=== PATIENT | female | born 1990 | race Caucasian/White ===

== ENCOUNTER 2023-04-06 08:13 | Outpatient (CLI) | payer BC, SELFPAY ==
--- NOTE | 2023-04-06 08:15 | CRLHL7_ITS ---
For Patients: As a result of the Cures Act, medical imaging exams and procedure reports are released immediately into your electronic medical record. You may view this report before your referring provider. If you have questions, please contact your health care provider. INDICATION: First trimester scan, establish dates. COMPARISON: None. TECHNIQUE: Real-time james-scale imaging of the pelvis was performed. FINDINGS: Sonographic imaging demonstrates a single living intrauterine gestation. The embryo demonstrates a regular cardiac rate measuring 185 beats per minute. The embryo`s crown-rump length measurement of 2.2 cm corresponds to a gestational age of 8 weeks 6 days with a sonographic due date of 11/10/2023. There is a normal-appearing yolk sac. There are no gross abnormalities noted within the embryo at this early state of development. The gestational sac has a normal appearance. There is a 2.6 x 1.9 x 2.2 cm perigestational hemorrhage. The amount of fluid within the sac appears appropriate for gestational age. The cervix is closed. The myometrium appears normal. The ovaries are of normal size. Corpus luteal cyst left ovary. Trace pelvic free fluid. IMPRESSION: Single living intrauterine with sonographic gestational age 8 weeks 6 days and sonographic due date of 11/10/2023. Right-sided subchorionic hemorrhage measuring 2.6 x 1.9 x 2.2 cm. Dictated by Yung Perkins MD @ 04/06/2023 11:24:57 AM (Electronically Signed)
== END 2023-04-06 08:14 | disposition home or self-care (01) ==
LOC: US 08:14
PROVIDERS: Visit Provider Advanced Practice Midwife
DX: Z34.91 Encounter for supervision of normal pregnancy, unspecified, first trimester (principal); O20.9 Hemorrhage in early pregnancy, unspecified; Z3A.08 8 weeks gestation of pregnancy
CPT/HCPCS: 76817; 86703; 86706; 86803; 86850; 86900; 86901; 87086; 87340

== ENCOUNTER 2023-04-06 09:30 | Outpatient (CLI) | payer BC, SELFPAY | END 2023-04-06 09:31 | disposition home or self-care (01) | PROVIDERS: Visit Provider Advanced Practice Midwife | DX: Z34.91 Encounter for supervision of normal pregnancy, unspecified, first trimester (principal); Z3A.08 8 weeks gestation of pregnancy | CPT/HCPCS: 86592; 86703; 86704; 86706; 86762; 86787; 86803; 86850; 86900; 86901; 87086; 87340 ==

== ENCOUNTER 2023-07-01 13:56 | Outpatient (CLI) | payer BC, SELFPAY ==
--- NOTE | 2023-07-01 14:00 | CRLHL7_ITS ---
For Patients: As a result of the Century Cures Act, medical imaging exams and procedure reports are released immediately into your electronic medical record. You may view this report before your referring provider. If you have questions, please contact your health care provider. INDICATION: Evaluate anatomy. COMPARISON: 04/06/2023 TECHNIQUE: Real time james scale imaging of the fetus was performed as well as color Doppler analysis of the umbilical vessels. FINDINGS: Sonographic imaging demonstrates a single living intrauterine gestation. Fetus demonstrates a regular cardiac rate of 150 beats per minute. Fetus has a vertex position. The placenta lies anteriorly without evidence of placenta previa. Edge of the placenta is located 5.1 cm from the internal cervical os. Amniotic fluid volume appears normal. Single deepest vertical pocket: 6.8 cm. The cervix is closed and measures 4.4 cm in length. The composite ultrasound gestational age is calculated at 21 weeks 5 days with an estimated sonographic due date of 11/06/2023. The estimated weight is 435 grams which lies at the 83rd %. The following biometric measurements were obtained: Biparietal diameter: 5.1 cm/21 weeks 3 days 72nd% Head circumference: 19.0 cm/21 weeks 2 days 59th% Abdominal circumference: 17.8 cm/22 weeks 5 days 92nd% Femur length: 3.3 cm/20 weeks 2 days 25th% The HC/AC ratio measures: 1.07 range (1.06-1.24) On anatomic survey, there is a normal appearance of the cerebral ventricles, cavum septi pellucidi, cisterna magna and cerebellum. The nose, lips, and facial profile appear normal. The cervical, thoracic and lumbar spine are well visualized and appear normal. There is a normal four-chamber heart view and the left and right ventricular outflow tracts appear normal. The diaphragm and stomach appear normal. The kidneys and bladder also appear normal. There is a normal three-vessel cord and cord insertion site. The four extremities appear normal. IMPRESSION: Normal OB ultrasound exam with concordance of clinical and sonographic dating. No intrinsic abnormalities noted on anatomic survey. Dictated by Yung Perkins MD @ 07/02/2023 9:57:16 AM (Electronically Signed)
== END 2023-07-01 13:57 | disposition home or self-care (01) ==
LOC: US 13:58
PROVIDERS: Visit Provider Advanced Practice Midwife
DX: Z34.92 Encounter for supervision of normal pregnancy, unspecified, second trimester (principal); Z3A.21 21 weeks gestation of pregnancy
CPT/HCPCS: 76805

== ENCOUNTER 2023-08-26 10:07 | Outpatient (CLI) | payer BC, SELFPAY | END 2023-08-26 10:08 | disposition home or self-care (01) | LOC: NFLDREF 08-28 12:18 | PROVIDERS: Visit Provider Advanced Practice Midwife | DX: Z34.93 Encounter for supervision of normal pregnancy, unspecified, third trimester (principal) | CPT/HCPCS: 86592 ==

== ENCOUNTER 2023-09-09 08:30 | Outpatient (RCR) | payer BC, SELFPAY | END 2024-01-07 23:59 | disposition home or self-care (01) | PROVIDERS: Visit Provider Advanced Practice Midwife | DX: N81.89 Other female genital prolapse (principal); R29.898 Other symptoms and signs involving the musculoskeletal system; Z51.89 Encounter for other specified aftercare | CPT/HCPCS: 97110; 97162 ==

== ENCOUNTER 2023-09-30 12:33 | Outpatient (CLI) | payer BC, SELFPAY | END 2023-09-30 12:34 | disposition home or self-care (01) | LOC: NFLDREF 10-02 07:28 | PROVIDERS: Visit Provider Advanced Practice Midwife | DX: Z34.93 Encounter for supervision of normal pregnancy, unspecified, third trimester (principal) | CPT/HCPCS: 82728 ==

== ENCOUNTER 2023-10-14 11:14 | Outpatient (CLI) | payer BC, SELFPAY | END 2023-10-14 11:15 | disposition home or self-care (01) | LOC: NFLDREF 10-16 08:56 | PROVIDERS: Visit Provider Advanced Practice Midwife | DX: Z34.83 Encounter for supervision of other normal pregnancy, third trimester (principal) | CPT/HCPCS: 87081; 87653 ==

== ENCOUNTER 2023-10-20 09:05 | Outpatient (RCR) | payer BC, SELFPAY ==
--- NOTE | 2023-10-13 10:59 | URNOTE ---
Per [employer], Interactive Care Reviewer, prior auth is not required for [employer] ([id number]). Tracking #[id number]
[2023-10-20 09:21] VITALS: BP 100/66; PULSE 87; RESP 16; TEMP 35.9; O2SAT 95
[2023-10-20] MEDS: IRON DEXTRAN COMPLEX 25 MG in 0.9 % SODIUM CHLORIDE 100 ml 100 ML 402 MG IVPB (09:56)
[2023-10-20] MEDS: 0.9 % SODIUM CHLORIDE 250 ml IV (11:15)
[2023-10-20] MEDS: IRON DEXTRAN COMPLEX 975 MG in 0.9 % SODIUM CHLORIDE 250 ml 250 ML 269.5 MG IVPB (11:15)
[2023-10-20] MEDS: SODIUM CHLORIDE 0.9 % (FLUSH) 10 ML SYRINGE IVF (11:15)
[2023-10-20 12:25] VITALS: BP 117/69; PULSE 71; RESP 16; TEMP 36.7; O2SAT 96
[2023-10-20 13:01] VITALS: BP 113/72; PULSE 76; RESP 16; TEMP 36.3; O2SAT 96
== END 2024-04-17 23:59 | disposition home or self-care (01) ==
LOC: CCIC 09:05
PROVIDERS: Visit Provider Advanced Practice Midwife
DX: D50.9 Iron deficiency anemia, unspecified (principal)
CPT/HCPCS: 96365; 96376; J1750; J7050

== ENCOUNTER 2023-11-12 14:53 | Outpatient (CLI) | payer BC, SELFPAY ==
--- NOTE | 2023-11-12 15:00 | CRLHL7_ITS ---
For Patients: As a result of the Century Cures Act, medical imaging exams and procedure reports are released immediately into your electronic medical record. You may view this report before your referring provider. If you have questions, please contact your health care provider. INDICATION: Small for dates TECHNIQUE: Limited transabdominal two-dimensional james-scale ultrasound examination. COMPARISON: None FINDINGS: There is a living fetus in cephalic lie with gestational age of 40 weeks by LMP and 38 weeks 6 days by today`s measurements. EDC based on LMP is today, 11/12/2023. BPD: 9.3 cm, 38 weeks Head circumference: 34.7 cm, 40 weeks 1 day Abdominal circumference: 36.0 cm, 40 weeks Femur length: 7.3 cm, 37 weeks 3 days The weight is estimated at 3717 grams, the 58th percentile. The heart rate is measured at 134 beats per minute and the rhythm appears regular. The amniotic fluid volume is within normal limits with single deepest pocket of 8.7 cm. The placenta is anterior and superior to the cervical os. There is no evidence of previa. IMPRESSION: 1. Living fetus in cephalic lie with gestational age of 40 weeks by LMP and 38 weeks 6 days by today`s measurements. EDC based on LMP is today, 11/12/2023. 2. weight estimated at 3717 grams, the 58th percentile. 3. Amniotic fluid volume within normal limits, single deepest pocket measured at 8.7 cm. Dictated by Hossein Coleman MD @ 11/14/2023 9:15:14 AM (Electronically Signed)
== END 2023-11-12 14:54 | disposition home or self-care (01) ==
LOC: US 14:54
PROVIDERS: Visit Provider Advanced Practice Midwife
DX: Z34.93 Encounter for supervision of normal pregnancy, unspecified, third trimester (principal); Z3A.38 38 weeks gestation of pregnancy
CPT/HCPCS: 76816

== ENCOUNTER 2023-11-18 12:56 | Outpatient (CLI) | payer BC, SELFPAY ==
--- NOTE | 2023-11-18 13:00 | CRLHL7_ITS ---
For Patients: As a result of the Century Cures Act, medical imaging exams and procedure reports are released immediately into your electronic medical record. You may view this report before your referring provider. If you have questions, please contact your health care provider. INDICATION: Post dates COMPARISON: 11/12/2023 TECHNIQUE: Real time james scale imaging of the fetus was performed. Without non-stress testing. FINDINGS: Sonographic imaging demonstrates a single living intrauterine gestation. Fetus demonstrates a regular cardiac rate of 150 beats per minute. Fetus has a vertex position. The amniotic fluid volume appears normal and there is a single deepest pocket measurement of 7.3 cm. The fetus was active and demonstrated normal breathing movements. There was normal flexion and extension of the trunk and extremities. IMPRESSION: Normal biophysical profile score of 8 out of 8. Dictated by Yung Perkins MD @ 11/19/2023 11:12:17 AM (Electronically Signed)
== END 2023-11-18 12:57 | disposition home or self-care (01) ==
LOC: US 12:57
PROVIDERS: Visit Provider Advanced Practice Midwife
DX: O48.0 Post-term pregnancy (principal)
CPT/HCPCS: 76819

== ENCOUNTER 2023-11-23 02:45 | Inpatient (IN) | payer BC, SELFPAY ==
[2023-11-23] VITALS (18 sets, daily range): BP systolic 89–122; BP diastolic 47–68; PULSE 65–89; RESP 16–18; TEMP 36.6–37.2; O2SAT 97–98; BMI 34.5
--- NOTE | 2023-11-23 02:16 | P.LDBA_ITS ---
Subjective History of Present Illness Date Seen: 11/23/23 Narrative: Patient is being admitted to Labor and Delivery for labor. She is a 32 year old at 41.4 weeks gestation. Her full history and physical was dictated by Comfort Verdugo CNM on 10/21/23. Please see this for details. Martha has been del since 2129. She denies leaking of fluid and has had small pink discharge with passing her mucus plug. Specific Issues/Plans Truck Supervisor: Mercedes Perkins H&P done by DAWSON Handley on 10/21/2023. 1. Rubella equivocal vaccine PP 2. Hx of recurrent miscarriage x 4 some anxiety at 12 week visit, check mood at next visit 3. Measuring small for dates. Growth at 40 wks 58%. OB - Problem Based A/P Additional Plan (1) Pain during labor: Status: Acute (2) Post-dates : Status: Acute Plan Assessment:?? at 41.4 weeks gestation?? GBS negative? Patient is coping well with challenges of labor.?? Labor type: Spontaneous, Early labor? Category 1 FHR pattern.? complicated by: Measuring small for dates- growth at 40 weeks 58% Hx of recurrent miscarriage X 4 Plan:?? * ?Admit to L & D? * IV access: none at this time * Monitoring per policy: intermittent? * Candidate for analgesia of choice.? Planning unmedicated for pain management * Desires waterbirth.? Consent signed and Hep C negative * Expectant management at this time ? * Patient encouraged to reposition and ambulate to promote physiologic labor and . * Anticipate ? Delivery/Labor/Induction Plan Plan: expectant management OB Exam Physical Exam Vital signs: Temp Pulse Resp BP 98.7 F 74 17 122/60 11/23/23 01:49 11/23/23 01:48 11/23/23 01:49 11/23/23 01:48 Narrative: Vitals Reviewed Constitutional:? Alert and oriented x3 HEENT:? Normocephalic, atraumatic Neck:? Supple Lungs:? Clear to auscultation bilaterally Heart:? Regular rate and rhythm, no murmur, rub or gallop Abdomen:? Soft, nontender, and gravid. Vertex by Ed's, confirmed with cervical exam. Extremities:? No edema or erythema Cervix: 5 cm/80%/+1 station/vertex NST: 135 bpm/moderate variability/+accelerations/-decelerations/ moderate contractions Detailed Labor and Delivery Exam Patient Gravid: Yes
[2023-11-23] MEDS: OXYTOCIN 10 UNIT/ML INJ IM (06:25)
--- NOTE | 2023-11-23 06:52 | W.PM.OBVAGDE ---
OB Procedure Vag Delivery Mother Details Mother Details: The patient is a 32 year-old, 6, Para 1, admitted on 11/23/23 at 41.4 weeks gestation. : 6 Para: 2 Weeks Gestation: 41.4 Admission Date: 11/23/23 Additional Details Amniotic Membrane Status: AROM Amniotic Membrane Rupture Date: 11/23/23 Amniotic Membrane Rupture Time: 05:55 Amniotic Membrane Fluid Description: Meconium Stained Analgesia/Anesthesia Type: None Waterbirth: No Pitcoin: Yes (IM for AMTSL) Intrapartal Events: None Delivery augmentation: rupture of membranes Labor Onset: 21:30 Complete: 06:07 Pushin:08 Heart: heart tones during second stage were intermittently monitored, in 130's no audible decelerations were heard. Delivery Details Delivery Date: 11/23/23 Delivery Time: 06:14 Route of delivery: Gender: Male Viability: Alive; Heart Rate Present Position at Delivery: OA Delivery Details: 32?y.o?at 41.4 weeks.? Martha arrived in active labor at 5cm dilated. She had been laboring at home since approximately 2129. She was planning a waterbirth and was admitted to the waterbirth room. She progressed normally and then entered the tub around 0415. She continued to contract regularly and progressed to the point of having a lot of pelvic pressure. Was unable to have a strong urge to push in the tub and elected to get out to the bed. At that time she desired a cervical exam to check if she was completely dilated. Exam showed she had an anterior rim and intact membranes. Offered to rupture her membranes to see if this would help her progress and she was agreeable. This was done with minimal fluid seen. She then progressed to feeling pushy and was assumed complete with pushing. ? ? She became complete at 0607.??She pushed in left tilt positions effectively.? Spontaneous vaginal delivery at 0614 of?a viable?male .??Delivered in vertex OA position.??Shoulders delivered easily.? Spontaneous cry noted.?? placed on maternal abdomen.??Cord?was clamped and cut after a 5+ minute delay.??Nose and mouth were bulb suctioned.? Shoulder dystocia: no? Nuchal cord: no? Meconium stained?fluid: yes? Water : no? ? ? 8 at 1 minute and 8 at 5 minutes.? Weight is pending. ? Placenta delivered spontaneously and?complete?at 0639 with a?3 vessel?cord.?? Bleeding controlled with fundal massage and?pitocin?for AMTSL.? ? Mother and infant were stable after delivery.? ? Lacerations:? intact ? Bleeding?post delivery?was: moderate. ?The fundus was firm to palpation.? Blood loss: 850?mL.? Blood loss measurement type: QBL? ? ? Sponge,?lap?and needles counts are correct.? Mother and were stable after delivery.? 1 Minute Interval Total Score: 8 5 Minute Interval Total Score: 8 Additional Details Shoulder Dystocia: No Placenta Delivery Time: 06:39 Placental Delivery Description: Spontaneous Procedure Done: Global Blood Loss: 850 Laceration: None Blood Loss Measurement Type: QBL Bakri Used: No Sponge/Need Count Correct: Yes Cord Vessel Description: 3 Vessels Event Summary Status: Mother and were stable after delivery. Disposition: floor
[2023-11-23 07:18] LABS: Basophils Percent Auto 0.1 % (0.0-3.0); Eosinophils Percent Auto 0.1 % (0.0-7.0); Hematocrit 32.9 % (33.0-51.0); Hemoglobin* 10.9 gm/dL (12.0-16.0); Immature Granulocytes Pct Auto 0.7 %; Mean Corpuscular HGB Conc 33 gm/dL (32-36); Mean Corpuscular Hemoglobin 31 pg (26-34); Mean Corpuscular Volume 92 fL (80-100); Monocytes Percent Auto 4.1 % (0.0-11.0); Platelet Count* 163 K/uL (140-440); RDW Coefficient of Variation % 13.3 % (11.5-15.5); Red Blood Count 3.57 m/uL (4.00-5.20); White Blood Count* 14.83 K/uL (4.50-11.00)
[2023-11-23 07:19] LABS: Slide Review Reflex No
[2023-11-23] MEDS: IBUPROFEN 600 MG TABLET PO ×2 (12:24→23:17)
[2023-11-23] MEDS: DOCUSATE SODIUM 100 MG CAPSULE PO (23:17)
[2023-11-24 04:36] VITALS: BP 94/56; PULSE 89; RESP 16
[2023-11-24 07:06] LABS: Hemoglobin* 10.1 gm/dL (12.0-16.0)
--- NOTE | 2023-11-24 08:25 | P.DS_ITS ---
Documented by User: Yamilet Davison CNM 11/24/23 08:56 DS: Providers Provider Date Seen: 11/24/23 Date of admission: 11/23/23 02:45 Primary care physician: Not a Local Provider Admitting Clinician: Blanka Fang CNM Attending Physician on discharge: Yamilet Davison CNM Date of Discharge: 11/24/23 DS: Diagnosis Discharge Diagnosis (1) care and examination immediately after delivery: Status: Acute (2) Lactating mother: Status: Acute Exam Narrative: Exam Narrative: GENERAL APPEARANCE:? normal affect, alert, no distress? MOOD:? appropriate? CHEST:? clear to auscultation and percussion? HEART:? regular rate and rhythm? ABDOMEN:? soft, non-tender the uterine fundus is 1 above umbilicus because she has a full bladder., but is appropriate for the stage of recovery. PERINEUM:? minimal pain and no laceration so not examined EXTREMITIES:? normal and no edema? Const: Vital Signs, click to edit/add: Vital Signs - 24 hr 11/23/23 08:33 11/23/23 12:17 11/23/23 16:34 Temperature Pulse Rate 65 Pulse Rate [Blood Pressure Cuff] 80 83 Respiratory Rate 16 16 Blood Pressure 103/56 L Blood Pressure [Le ft Arm] 108/67 104/65 Pulse Oximetry Oxygen Delivery Me thod Room Air Room Air 11/23/23 19:56 11/23/23 23:11 11/24/23 04:36 Temperature 98.7 F 98.9 F Pulse Rate Pulse Rate [Blood Pressure Cuff] 84 89 89 Respiratory Rate 18 18 16 Blood Pressure Blood Pressure [Le ft Arm] 89/47 L 116/68 94/56 L Pulse Oximetry 97 98 Oxygen Delivery Me thod Room Air Room Air Room Air OB - DS: Summary Hospital Course Hospital Course: The patient is a 32 year old G 6 P 2042 at 41 4/7 weeks gestation that was admitted to the Center on 11/23/23 for active labor. She had an uncomplicated vaginal delivery. She delivered a viable male infant. She is breast feeding. the patient has done well. ?The patient feels well.? Her pain is well controlled with current medications.? She has no new complaints.? Urinary output is adequate and she is voiding without difficulty.? Has a good appetite, is tolerating a general diet, is passing flatus, and has not had a bowel movement.? Has scant amount of rubra lochia.? She is ambulating well.? No active bleeding?? Doing well? She is requesting discharge home Peripartum Data delivery method: Vaginal Laceration description: None complications: none Infant Gender: Male Infant Discharge Plan: Home Status at Discharge Functional status at discharge: independent ambulation Overall status at discharge: patient is progressing back to baseline Time Spent with Patient Time attestation: Total time spent providing and/or coordinating discharge services: Time spent: Less than 30 minutes Discharge Plan Discharge Disposition: Home, Self-Care Date of Admission: 11/23/23 02:45 Attending Provider on Discharge: Yamilet Davison Primary Care Provider: Provider,Not a Local Condition: Stable Anticipated Discharge Date/Time: 11/24/23 00:00 Discharge Medications: New docusate sodium 100 mg Capsule 100 mg PO DAILY Qty: 60 0RF Rx Instructions: Take 1-2 tablets daily as needed for constipation. ibuprofen 600 mg Tablet 600 mg PO Q6H PRNQty: 30 0RF Continued Saccharomyces boulardii [Daily Probiotic (S. boulardii)] 250 mg capsule 250 mg PO BID prenat.vits,wayne,plu-otmx-aadnw Tablet 1 tab PO QDAY cholecalciferol (vitamin D3) 125 mcg (5,000 unit) capsule 125 mcg PO QDAY omega 0-ocx-kkc-fish oil [Fish Oil] 1,200 (144-216) mg capsule 1 cap PO DAILY Discharge Orders: Discharge Order (Routine); Ordered 11/24/23 Ordered By: Johnna Irizarry Consulting provider completed their portion of the discharge: Yes Patient Education: OB Vaginal/Breast Feeding Activity Level: No Restrictions and Activity as Tolerated Discharge Diet: Regular Follow Up Appointments: [facility] [Provider Group] Provider,Not a Local [Primary Care Provider] - Forms: [facility] Info Instructions Documented by User: Johnna Irizarry CNM 11/24/23 13:03 DS: Diagnosis Discharge Diagnosis (1) care and examination immediately after delivery: Status: Acute (2) Lactating mother: Status: Acute Exam Narrative: Exam Narrative: GENERAL APPEARANCE:? normal affect, alert, no distress? MOOD:? appropriate? CHEST:? clear to auscultation and percussion? HEART:? regular rate and rhythm? ABDOMEN:? soft, non-tender the uterine fundus is 1 above umbilicus because she has a full bladder, but is appropriate for the stage of recovery. PERINEUM:? minimal pain and no laceration so not examined EXTREMITIES:? normal and no edema? Const: Documenting provider has reviewed patient's vital signs: yes Discharge Plan Discharge Disposition: Home, Self-Care Date of Admission: 11/23/23 02:45 Attending Provider on Discharge: Yamilet Davison Primary Care Provider: Provider,Not a Local Condition: Stable Anticipated Discharge Date/Time: 11/24/23 00:00 Discharge Medications: New docusate sodium 100 mg Capsule 100 mg PO DAILY Qty: 60 0RF Rx Instructions: Take 1-2 tablets daily as needed for constipation. ibuprofen 600 mg Tablet 600 mg PO Q6H PRNQty: 30 0RF Continued Saccharomyces boulardii [Daily Probiotic (S. boulardii)] 250 mg capsule 250 mg PO BID prenat.vits,wayne,qhe-oije-bznlz Tablet 1 tab PO QDAY cholecalciferol (vitamin D3) 125 mcg (5,000 unit) capsule 125 mcg PO QDAY omega 0-bks-pwd-fish oil [Fish Oil] 1,200 (144-216) mg capsule 1 cap PO DAILY Discharge Orders: Discharge Order (Routine); Ordered 11/24/23 Ordered By: Johnna Irizarry Consulting provider completed their portion of the discharge: Yes Patient Education: OB Vaginal/Breast Feeding Activity Level: No Restrictions and Activity as Tolerated Discharge Diet: Regular Follow Up Appointments: [facility] [Provider Group] Provider,Not a Local [Primary Care Provider] - Forms: [facility] Info Instructions
[2023-11-24 08:53] VITALS: BP 108/66; PULSE 89; RESP 16; TEMP 37.1; O2SAT 98
[2023-11-24 16:59] LABS: Rapid Plasma Reagin (RPR) Non Reactive (Non Reactive)
== END 2023-11-24 12:38 | disposition home or self-care (01) | DRG 560 ==
LOC: OB OUT 02:50 → OB 02:50
PROVIDERS: Admitting Provider Advanced Practice Midwife; Visit Provider Advanced Practice Midwife
DX: O48.0 Post-term pregnancy (principal); O77.0 Labor and delivery complicated by meconium in amniotic fluid; Z37.0 Single live birth; Z3A.41 41 weeks gestation of pregnancy
CPT/HCPCS: 36415; 85018; 85025; 86592; 86850; 86900; 86901; A9270; J2590

== ENCOUNTER 2025-05-01 13:59 | Outpatient (CLI) | payer BC, SELFPAY ==
--- NOTE | 2025-05-01 14:00 | CRLHL7_ITS ---
For Patients: As a result of the Cures Act, medical imaging exams and procedure reports are released immediately into your electronic medical record. You may view this report before your referring provider. If you have questions, please contact your health care provider. OB ULTRASOUND INDICATION: Dating and viability. TECHNIQUE: Real time grayscale imaging of the fetus was performed. Transvaginal. Transvaginal imaging performed to better demonstrate the endometrium and ovaries. LMP: 02/28/2026. GIGI by LMP: 12/05/2025. GA: 8 w, 6 d. Previous US: No. CRL: 1.5 cm. 7 w 6 d. GIGI: 12/12/2025. FHR: 121 BPM. Gestational sac: 2.2 cm. Yolk sac: 3.6 mm. Appears within normal limits. Right ovary: Within normal limits. 4.0 x 2.1 x 2.1 cm. Left ovary: Within normal limits. 3.1 x 2.1 x 2.5 cm. IMPRESSION: 1. Single living intrauterine measures 7 weeks 6 days with sonographic due date 12/12/2025. 2. Lower uterine segment subchorionic hemorrhage measures 1.4 x 1.0 x 0.7 cm. 3. Fundal subchorionic hemorrhage measures 2.6 x 0.7 x 2.7 cm. 4. Simple right ovarian cyst measures 1.8 x 1.5 x 1.5 cm. 5. Corpus luteal cyst left ovary measures 1.3 x 1.2 x 1.1 cm. Yung Perkins M.D. Diagnostic Radiologist [email or web address] MONIQUE/cassi ye/Dictated by: Yung Perkins MD @ 05/01/2025 3:39:00 PM (Electronically Signed)
== END 2025-05-01 14:00 | disposition home or self-care (01) ==
LOC: US 14:00
PROVIDERS: Visit Provider Advanced Practice Midwife
DX: O20.9 Hemorrhage in early pregnancy, unspecified (principal); O34.81 Maternal care for other abnormalities of pelvic organs, first trimester; N83.291 Other ovarian cyst, right side; N83.12 Corpus luteum cyst of left ovary; Z3A.01 Less than 8 weeks gestation of pregnancy
CPT/HCPCS: 76817

== ENCOUNTER 2025-05-01 15:35 | Outpatient (CLI) | payer BC, SELFPAY | END 2025-05-01 15:36 | disposition home or self-care (01) | PROVIDERS: Visit Provider Advanced Practice Midwife | DX: Z34.91 Encounter for supervision of normal pregnancy, unspecified, first trimester (principal); Z3A.08 8 weeks gestation of pregnancy | CPT/HCPCS: 83020; 83021; 85660; 86592; 86703; 86704; 86706; 86762; 86787; 86803; 86850; 86900; 86901; 87086; 87340 ==

== ENCOUNTER 2025-05-15 14:16 | Outpatient (CLI) | payer BC, SELFPAY ==
--- NOTE | 2025-05-15 14:45 | CRLHL7_ITS ---
For Patients: As a result of the Cures Act, medical imaging exams and procedure reports are released immediately into your electronic medical record. You may view this report before your referring provider. If you have questions, please contact your health care provider. INDICATION: Bleeding COMPARISON: Obstetric ultrasound on May 01, 2025 TECHNIQUE: First trimester obstetric ultrasound, transabdominal and transvaginal approach utilizing grayscale and color Doppler FINDINGS: The uterus is within normal limits in size and echogenicity. No uterine masses. Intrauterine with crown-rump length measuring 2.2 centimeters consistent with an 8 week and 6 day gestation. Normal appearing yolk sac. There are no heart tones. The cervix is unremarkable. The right ovary measures 4.0 x 2.3 x 2.0 cm and contains a simple cyst measuring 2.0 centimeters in greatest dimension. There is normal arterial and venous color Doppler flow. The left ovary measures 2.6 x 1.7 x 2.3 cm and contains a corpus luteal cyst measuring 1.2 centimeters in greatest dimension. There is normal arterial and venous color Doppler flow. No free fluid. IMPRESSION: Intrauterine with crown-rump length measuring 2.2 centimeters consistent with an 8 week and 6 day gestation with no heart tones. Findings are diagnostic of early loss. Dictated by Klever Perez MD @ 05/15/2025 3:19:11 PM (Electronically Signed)
== END 2025-05-15 14:17 | disposition home or self-care (01) ==
LOC: US 14:16
PROVIDERS: Visit Provider Midwife
DX: O20.9 Hemorrhage in early pregnancy, unspecified (principal); O36.80X0 Pregnancy with inconclusive fetal viability, not applicable or unspecified; Z3A.08 8 weeks gestation of pregnancy
CPT/HCPCS: 76817

== ENCOUNTER 2025-06-05 11:08 | Outpatient (CLI) | payer BC, SELFPAY | END 2025-06-05 11:09 | disposition home or self-care (01) | LOC: NFLDREF 06-10 17:02 | PROVIDERS: Visit Provider Advanced Practice Midwife | DX: O03.9 Complete or unspecified spontaneous abortion without complication (principal) | CPT/HCPCS: 84702 ==